=== PATIENT | male | born 1995 | race Two or more races ===

== ENCOUNTER 2020-01-28 02:42 | Emergency (ER) | payer OTHER ==
[~2020-01-28] VITALS: Ht 177.8 cm; Wt 100.0 kg
[2020-01-28] MEDS ORDERED: PERTUSS(ACELL),DIPH,TET VAC/PF 0.5 ML VIAL IM ONE (03:30)
[2020-01-28] MEDS ORDERED: IBUPROFEN 600 MG TABLET PO ONE (03:30)
[2020-01-28] MEDS ORDERED: LIDOCAINE 1% 10 ML VIAL INJ ONE (03:30)
[2020-01-28] MEDS ORDERED: BACITRACIN 0.9 GM PACKET OINTMENT TP ONE (03:30)
[2020-01-28 03:58] VITALS: BP 132/80
== END 2020-01-28 03:59 | disposition home or self-care (01) ==
LOC: EMS 02:42
DX: S51.012A Laceration without foreign body of left elbow, initial encounter (principal); S40.211A Abrasion of right shoulder, initial encounter; V00.131A Fall from skateboard, initial encounter; Y93.51 Activity, roller skating (inline) and skateboarding; Y92.89 Other specified places as the place of occurrence of the external cause; Y99.8 Other external cause status
CPT/HCPCS: 12002; 73030; 73080; 90471; 90715; 99284; J3490

== ENCOUNTER 2020-01-31 15:23 | Emergency (ER) | payer OTHER ==
[~2020-01-31] VITALS: Ht 177.8 cm; Wt 100.0 kg
[2020-01-31 15:27] VITALS: BP 122/81
== END 2020-01-31 16:12 | disposition home or self-care (01) ==
LOC: EMS 15:23
DX: S51.012D Laceration without foreign body of left elbow, subsequent encounter (principal); X58.XXXD Exposure to other specified factors, subsequent encounter
CPT/HCPCS: Z7502

== ENCOUNTER 2020-02-10 13:40 | Emergency (ER) | payer OTHER ==
[~2020-02-10] VITALS: Ht 172.7 cm; Wt 72.7 kg
[2020-02-10 13:42] VITALS: BP 122/66
== END 2020-02-10 14:20 | disposition home or self-care (01) ==
LOC: EMS 13:42
DX: S51.012D Laceration without foreign body of left elbow, subsequent encounter (principal); R03.0 Elevated blood-pressure reading, without diagnosis of hypertension; Z48.02 Encounter for removal of sutures; V00.131D Fall from skateboard, subsequent encounter
CPT/HCPCS: Z7502

== ENCOUNTER 2020-05-17 23:01 | Emergency (ER) | payer OTHER ==
[~2020-05-17] VITALS: Ht 177.8 cm; Wt 95.0 kg
[2020-05-18 00:40] VITALS: BP 136/70
== END 2020-05-18 01:17 | disposition home or self-care (01) ==
LOC: EMS 23:01
DX: L76.22 Postprocedural hemorrhage of skin and subcutaneous tissue following other procedure (principal)
CPT/HCPCS: Z7502